=== PATIENT | male | born 1960 | race Caucasian/White ===

== ENCOUNTER 2017-04-25 16:21 | Emergency (ER) | payer OTHER ==
--- NOTE | 2017-04-25 17:04 | PDOC ---
History of Present Illness - General History Source: Patient Exam Limitations: No Limitations - History of Present Illness Initial Comments: 04/25/17 17:50 56 y.o male with PMH of paraplegia from T7 down s/p spinal cord injury 8.5 years ago and hypothyroidism, who presents to the emergency room with a left foot injury after unknowingly dragging his left foot underneath the wheelchair this morning. The patient was going down a slippery hill and his left foot must have caught under the wheelchair. The patient has no sensation in his lower extremities. However, he noticed that his left ankle is very warm, which is unusual because his lower extremities are very cold to touch at baseline. His also noticed that his left foot dropped down more than usual and has increased mobility. He denies any other injury or trauma. Denies any complaints of pain. Allergies: penicillin, vancomycin <Elisa Argueta - Last Filed: 04/25/17 17:50> <Suresh Sparks - Last Filed: 04/25/17 18:05> - General Chief Complaint: Injury Stated Complaint: LEFT FOOT INJURY Time Seen by Provider: 04/25/17 16:24 Past History <Elisa Argueta - Last Filed: 04/25/17 17:50> - Past Medical History Anemia: No Asthma: No Cancer: No Cardiac Disorders: No CVA: No COPD: No CHF: No Dementia: No Diabetes: No GI Disorders: No Disorders: No HTN: No Hypercholesterolemia: No Liver Disease: No Seizures: No Thyroid Disease: Yes (hypothyroidism) - Surgical History Abdominal Surgery: No Appendectomy: No Cardiac Surgery: No Cholecystectomy: No Lung Surgery: No Neurologic Surgery: No Orthopedic Surgery: Yes (reconstruction T6 - T10) - Suicide/Smoking/Psychosocial Hx Smoking History: Never smoked Have you smoked in the past 12 months: No Hx Alcohol Use: No Drug/Substance Use Hx: No <Suresh Sparks - Last Filed: 04/25/17 18:05> - Past Medical History Allergies/Adverse Reactions: Allergies Allergy/AdvReac Type Severity Reaction Status Date / Time vancomycin Allergy Mild Rash Verified 09/09/14 16:58 Penicillins Allergy Unknown Rash Verified 09/09/14 16:59 Home Medications: Ambulatory Orders Apixaban [Eliquis] 5 mg PO BID 04/25/17 Hydrochlorothiazide [Hctz -] 25 mg PO DAILY 04/25/17 Levothyroxine [Synthroid -] 250 mcg PO DAILY 04/25/17 Review of Systems - Review of Systems Able to Perform ROS?: Yes Comments:: 04/25/17 17:51 CONSTITUTIONAL: Absent: fever, no chills, no fatigue EYES: Absent: visual changes ENT: Absent: ear pain, no sore throat CARDIOVASCULAR: Absent: chest pain, no palpitations RESPIRATORY: Absent: cough, no SOB GI: Absent: abdominal pain, no nausea, no vomiting, no constipation, no diarrhea GENITOURINARY: Absent: dysuria, no frequency, no hematuria MUSCULOSKELETAL: +left foot injury Absent: back pain, no arthralgia, no myalgia SKIN: Absent: rash <Elisa Argueta - Last Filed: 04/25/17 17:50> *Physical Exam - Vital Signs Last Vital Signs Temp Pulse Resp BP Pulse Ox 97.8 F 92 H 18 136/57 97 04/25/17 16:23 04/25/17 16:23 04/25/17 16:23 04/25/17 16:23 04/25/17 16:23 - Physical Exam Comments: 04/25/17 17:51 GENERAL: Well-appearing, well-nourished. No apparent distress. HEENT: Normocephalic, atraumatic. PERRL, EOM intact. CARDIOVASCULAR: Normal S1, S2. Regular rate and rhythm. PULMONARY: Clear to auscultation bilaterally. LEFT LOWER EXTREMITY: +There is increased swelling with some extensive mobility of the ankle. He has no sensation in the lower extremities. SKIN: Dry. No rash <Elisa Argueta - Last Filed: 04/25/17 17:50> *DC/Admit/Observation/Transfer - Attestations Scribe Attestion: 04/25/17 17:51 Documentation prepared by KADY Vogel, acting as medical affairs director for Suresh Sparks MD. <Elisa Argueta - Last Filed: 04/25/17 17:50> - Discharge Dispostion Admit: No <Suresh Sparks - Last Filed: 04/25/17 18:05> Diagnosis at time of Disposition: Ankle sprain Qualifiers: Encounter type: initial encounter Involved ligament of ankle: other ligament Laterality: left Qualified Code(s): S93.492A - Sprain of other ligament of left ankle, initial encounter - Discharge Dispostion Disposition: HOME Condition at time of disposition: Good - Patient Instructions Printed Discharge Instructions: DI for Ankle Sprain
[2017-04-25 17:20] VITALS: BP 136/57; PULSE 92; TEMP 97.8; BMI 35.3
== END 2017-04-25 18:09 | disposition home or self-care (01) ==
LOC: FER 16:21
DX: S93.492A Sprain of other ligament of left ankle, initial encounter (principal); W20.8XXA Other cause of strike by thrown, projected or falling object, initial encounter; Y93.89 Activity, other specified; Y92.9 Unspecified place or not applicable; E03.9 Hypothyroidism, unspecified
CPT/HCPCS: 73610-TC-LT; 99283-25